=== PATIENT | female | born 1950 | race African-American/Black ===

== ENCOUNTER 2016-08-05 15:25 | Emergency (ER) | payer MEDICARE, MEDICAID ==
[~2016-08-05] VITALS: Ht 167.6 cm; Wt 70.0 kg
[2016-08-05] MEDS ORDERED: BACITRACIN ZINC OINT UDPKT TOP ONE (18:30)
[2016-08-05] MEDS ORDERED: LIDOCAINE HCL/EPINEPHRINE 1%-EPI 1:100,000 20 ML VIAL MC ONE (18:30)
[2016-08-05 21:08] VITALS: BP 121/77
== END 2016-08-05 21:09 | disposition home or self-care (01) ==
LOC: ER 18:27
DX: S41.12 Laceration with foreign body of upper arm (principal); Z48.02 Encounter for removal of sutures; E11.9 Type 2 diabetes mellitus without complications; I10 Essential (primary) hypertension; I25.10 Atherosclerotic heart disease of native coronary artery without angina pectoris; Z98.890 Other specified postprocedural states; F17.210 Nicotine dependence, cigarettes, uncomplicated; V43.62XD Car passenger injured in collision with other type car in traffic accident, subsequent encounter
CPT/HCPCS: 20520; 73060; 99284; J3490

== ENCOUNTER 2020-03-30 07:35 | Emergency (ER) | payer MEDICARE, MEDICAID ==
[~2020-03-30] VITALS: Ht 160 cm; Wt 56.0 kg
[2020-03-30 08:20] LABS: BASOPHILS % 0.5 % (0.0-2.0); EOSINOPHILS % 1.9 % (0.0-5.0); HEMATOCRIT. 39.3 % (36.0-48.0); HEMOGLOBIN. 13.6 g/dL (12.0-16.0); LYMPHOCYTES % 15.3 % (20.0-50.0); MEAN CORPUSCULAR HEMOGLOBIN 29.5 pg (28.0-32.0); MEAN CORPUSCULAR VOLUME 85.1 fL (81.0-99.0); MEAN PLATELET VOLUME 9.6 fl (7.4-10.4); NEUTROPHILS % 79.3 % (40.0-76.0); PLATELET 230 x1000/uL (130-400); RED BLOOD CELL COUNT 4.62 mill/uL (4.2-5.4); RED CELL DISTRIBUTION WIDTH 16.5 % (11.6-14.6)
[2020-03-30 08:28] LABS: CHLORIDE 106 mEq/L (98-107)
[2020-03-30] MEDS ORDERED: FUROSEMIDE 40MG/4ML VIAL IVP ONE (09:30)
[2020-03-30] MEDS ORDERED: ENALAPRIL 2.5MG/2ML VIAL 2ML IV ONE (09:30)
[2020-03-30 10:23] VITALS: BP 174/81
== END 2020-03-30 11:50 | disposition left against medical advice (07) ==
LOC: ER 08:21 → CANBEDREQ 11:47 → ER 11:50
DX: I11.0 Hypertensive heart disease with heart failure (principal); I50.9 Heart failure, unspecified; J44.9 Chronic obstructive pulmonary disease, unspecified
CPT/HCPCS: 36415; 71045; 80053; 83880; 84484; 85025; 93005; 96374; 96375; 99285; J1940; J3490

== ENCOUNTER 2020-04-15 08:38 | Inpatient (IN) | payer MEDICARE, MEDICAID ==
[~2020-04-15] VITALS: Ht 168.9 cm; Wt 64.4 kg
[2020-04-15] MEDS ORDERED: IPRATROPIUM BROMIDE (0.02%) 0.5MG/2.5ML NEB HHN STA (08:47)
[2020-04-15] MEDS ORDERED: METHYLPREDNISOLONE SOD SUCC 125 MG/2 ML VIAL IV STA (08:47)
[2020-04-15] MEDS ORDERED: ALBUTEROL (0.083%) 2.5MG/3ML NEB HHN STA (08:47)
[2020-04-15 09:57] LABS: BASOPHILS % 0.5 % (0.0-2.0); EOSINOPHILS % 1.8 % (0.0-5.0); HEMATOCRIT. 39.5 % (36.0-48.0); HEMOGLOBIN. 13.6 g/dL (12.0-16.0); LYMPHOCYTES % 18.8 % (20.0-50.0); MEAN CORPUSCULAR HEMOGLOBIN 29.2 pg (28.0-32.0); MEAN CORPUSCULAR VOLUME 84.9 fL (81.0-99.0); MEAN PLATELET VOLUME 9.4 fl (7.4-10.4); MONOCYTES % 4.6 % (2.0-8.0); NEUTROPHILS % 74.3 % (40.0-76.0); PLATELET 246 x1000/uL (130-400); RED BLOOD CELL COUNT 4.66 mill/uL (4.2-5.4); RED CELL DISTRIBUTION WIDTH 16.1 % (11.6-14.6)
[2020-04-15 10:03] LABS: CHLORIDE 103 mEq/L (98-107)
[2020-04-15] MEDS ORDERED: ASPIRIN 81MG TABLET PO ONE (10:45)
[2020-04-15] MEDS ORDERED: FUROSEMIDE 40MG/4ML VIAL IV ONE (10:45)
[2020-04-15] MEDS ORDERED: NITROGLYCERIN 0.4MG TABLET SL SL PRN (10:45)
[2020-04-15] MEDS ORDERED: ENOXAPARIN 80MG/0.8ML SYR SUBCUT ONE (12:15)
[2020-04-15] MEDS ORDERED: POTASSIUM CHLORIDE 20MEQ TABLET SR PO ONE (12:30)
[2020-04-15] MEDS ORDERED: ONDANSETRON HCL 4MG/2ML INJ IV PRN (13:15)
[2020-04-15] MEDS ORDERED: ACETAMINOPHEN 325MG TABLET PO PRN (13:15)
[2020-04-15] MEDS: AMLODIPINE 10MG TABLET PO SCH (13:34)
[2020-04-15] MEDS: FUROSEMIDE 40MG/4ML VIAL IVP SCH ×2 (13:34→17:26)
[2020-04-15] MEDS: METHYLPREDNISOLONE SOD SUCC 40 MG/ML VIAL IV SCH ×2 (13:36→22:27)
[2020-04-15] MEDS ORDERED: DEXTROSE 50% WATER 50ML SYRINGE IV PRN (15:00)
[2020-04-15 16:34] LABS: *BARBITURATES SCREEN URINE NEGATIVE (NEGATIVE)
[2020-04-15 16:35] LABS: *AMPHETAMINES SCREEN URINE NEGATIVE (NEGATIVE); *BENZODIAZEPINES SCREEN URINE PRESUMTIVE POSITIVE (NEGATIVE); *COCAINE SCREEN URINE NEGATIVE (NEGATIVE); METHADONE URINE SCREEN NEGATIVE (NEGATIVE); OPIATES URINE SCREEN PRESUMTIVE POSITIVE (NEGATIVE)
[2020-04-15 16:36] LABS: CANNABINOID URINE SCREEN NEGATIVE (NEGATIVE); PHENCYCLIDINE URINE SCREEN NEGATIVE (NEGATIVE)
[2020-04-15] MEDS: ALBUTEROL 6.7GM HFA INHALER ORI SCH ×2 (17:15→17:25)
[2020-04-15] MEDS: ACETAMINOPHEN WITH CODEINE 300/30MG TABLET PO PRN (17:25)
[2020-04-15] MEDS: TRAMADOL 50MG TABLET PO PRN (17:25)
[2020-04-15] MEDS: BLOOD SUGAR DIAGNOSTIC STRIP TEST SCH ×2 (17:26→21:32)
[2020-04-15] MEDS: INSULIN LISPRO 100 UNITS/ML SUBCUT SCH ×3 (17:31→21:32)
[2020-04-16] VITALS: BP 144/58
[2020-04-16] MEDS: TRAMADOL 50MG TABLET PO PRN (01:15)
[2020-04-16 01:21] VITALS: BP 144/58
[2020-04-16] MEDS ORDERED: FURO-151 PO ×2 (01:30→12:50)
[2020-04-16] MEDS: BLOOD SUGAR DIAGNOSTIC STRIP TEST SCH ×2 (06:14→11:10)
[2020-04-16] MEDS: METHYLPREDNISOLONE SOD SUCC 40 MG/ML VIAL IV SCH ×2 (06:14→13:28)
[2020-04-16] MEDS: FUROSEMIDE 40MG/4ML VIAL IVP SCH (06:15)
[2020-04-16] MEDS: ACETAMINOPHEN WITH CODEINE 300/30MG TABLET PO PRN (06:27)
[2020-04-16] MEDS: INSULIN LISPRO 100 UNITS/ML SUBCUT SCH ×2 (06:34→11:10)
[2020-04-16 08:00] VITALS: BP 129/63
[2020-04-16] MEDS ORDERED: POTASSIUM CHLORIDE 20MEQ TABLET SR PO SCH (09:00)
[2020-04-16] MEDS ORDERED: ENOXAPARIN 40MG/0.4ML SYR SUBCUT SCH (09:00)
[2020-04-16] MEDS ORDERED: LOSARTAN POTASSIUM 100 MG TABLET PO SCH (09:00)
[2020-04-16] MEDS: AMLODIPINE 10MG TABLET PO SCH (10:15)
[2020-04-16 10:26] LABS: CHLORIDE 100 mEq/L (98-107)
[2020-04-16 12:00] VITALS: BP 119/76
[2020-04-16] MEDS ORDERED: POTA20TA82 PO (12:50)
[2020-04-16] MEDS ORDERED: LOSA100T3 PO (12:50)
[2020-04-16] MEDS ORDERED: AMLO10TA80 PO (12:50)
[2020-04-16] MEDS ORDERED: FLUT1DIS3 INH (12:50)
[2020-04-16] MEDS ORDERED: ALBU18HF2 IH (12:50)
[2020-04-16] MEDS ORDERED: AZIT250T12 MT (13:22)
[2020-04-16] MEDS ORDERED: P20 MT (13:22)
[2020-04-16 13:53] VITALS: BP 146/67
== END 2020-04-16 14:25 | disposition home or self-care (01) | DRG 177 ==
LOC: ER 09:05 → 7EST 12:12 → EDBEDREQTM 12:17 → EDBEDREQ 12:17 → ENRESERV 20:38 → CANRESERV 20:38 → ENRESERV 23:13
PROVIDERS: ADMIT Internal Medicine; ATTEND Internal Medicine
DX: U07.1 COVID-19 (principal); J12.89 Other viral pneumonia; J96.00 Acute respiratory failure, unspecified whether with hypoxia or hypercapnia; I21.4 Non-ST elevation (NSTEMI) myocardial infarction; J44.0 Chronic obstructive pulmonary disease with (acute) lower respiratory infection; J44.1 Chronic obstructive pulmonary disease with (acute) exacerbation; I50.40 Unspecified combined systolic (congestive) and diastolic (congestive) heart failure; E11.9 Type 2 diabetes mellitus without complications; E87.6 Hypokalemia; F17.210 Nicotine dependence, cigarettes, uncomplicated; I16.0 Hypertensive urgency; Z20.828 Contact with and (suspected) exposure to other viral communicable diseases; Z95.1 Presence of aortocoronary bypass graft; Z79.1 Long term (current) use of non-steroidal anti-inflammatories (NSAID); Z79.899 Other long term (current) drug therapy; Z71.6 Tobacco abuse counseling; I11.0 Hypertensive heart disease with heart failure
CPT/HCPCS: 36415; 71045; 80048; 80053; 80305; 82962; 83036; 83880; 84484; 85025; 87635; 93005; 94640; 96374; 99291; J1650; J1815; J1940; J2920; J2930

== ENCOUNTER 2022-02-21 07:55 | Inpatient (IN) | payer MEDICARE, MEDICAID ==
[~2022-02-21] VITALS: Ht 157.5 cm; Wt 60.6 kg
[~2022-02-21 07:55] MED LIST: ALBU18HF2 IH; AMLO10TA80 PO; AZIT250T12 MT; FLUT1DIS3 INH; FURO-151 PO; LOSA100T3 PO; P20 MT; POTA-204 PO
[2022-02-21 08:42] LABS: BASOPHILS % 0.8 % (0.0-2.0); EOSINOPHILS % 0.9 % (0.0-5.0); HEMOGLOBIN. 12.3 g/dL (12.0-16.0); LYMPHOCYTES % 14.7 % (20.0-50.0); MEAN CORPUSCULAR VOLUME 78.3 fL (81.0-99.0); MEAN PLATELET VOLUME 9.3 fl (7.4-10.4); MONOCYTES % 6.3 % (2.0-8.0); NEUTROPHILS % 77.3 % (40.0-76.0); PLATELET 300 x1000/uL (130-400); RED BLOOD CELL COUNT 4.73 mill/uL (4.2-5.4); RED CELL DISTRIBUTION WIDTH 19.7 % (11.6-14.6)
[2022-02-21 08:48] LABS: CHLORIDE 97 mEq/L (98-107)
[2022-02-21 09:30] LABS: INR 1.3; PROTHROMBIN TIME 13.9 sec (9.6-11.0)
[2022-02-21] MEDS ORDERED: LEVOFLOXACIN 750MG PREMIX 150 ML IV ONE (09:30)
[2022-02-21] MEDS ORDERED: POTASSIUM CHLORIDE 20MEQ TABLET SR PO ONE (09:30)
[2022-02-21 09:51] LABS: CLARITY URINE CLEAR (CLEAR); COLOR URINE DARK YELLOW (YELLOW); KETONES URINE TRACE (NEGATIVE); LEUKOCYTE ESTERASE URINE 1+ (NEGATIVE); NITRITE URINE NEGATIVE (NEGATIVE); OCCULT BLOOD URINE TRACE (NEGATIVE); PH URINE 5.5 (4.5-8.0); PROTEIN URINE 3+ (NEGATIVE); SPECIFIC GRAVITY URINE 1.021 (1.005-1.030)
[2022-02-21] MEDS ORDERED: ACETAMINOPHEN 325MG TABLET PO PRN (12:30)
[2022-02-21] MEDS ORDERED: GUAIFENESIN-DM 200MG-20MG/10ML UDC PO PRN (12:30)
[2022-02-21] MEDS ORDERED: ONDANSETRON HCL 4MG/2ML INJ IV PRN (12:30)
[2022-02-21] MEDS ORDERED: POTASSIUM CHLORIDE 20MEQ TABLET SR PO NR (12:30)
[2022-02-21 12:50] VITALS: BP 144/90
[2022-02-21] MEDS ORDERED: MAGNESIUM 4 G PREMIX 100 ML IV NR (13:00)
[2022-02-21 16:00] VITALS: BP 140/82
[2022-02-21] MEDS: IPRATROPIUM/ALBUTEROL 0.5-3(2.5)MG/3ML NEB HHN PRN ×2 (16:28→19:59)
[2022-02-21 20:00] VITALS: BP 112/78
[2022-02-22] VITALS: BP 130/65
[2022-02-22 04:00] VITALS: BP 155/99
[2022-02-22 07:34] LABS: BASOPHILS % 0.7 % (0.0-2.0); EOSINOPHILS % 1.5 % (0.0-5.0); HEMATOCRIT. 33.9 % (36.0-48.0); HEMOGLOBIN. 11.4 g/dL (12.0-16.0); LYMPHOCYTES % 27.1 % (20.0-50.0); MEAN CORPUSCULAR HEMOGLOBIN 26.1 pg (28.0-32.0); MEAN CORPUSCULAR VOLUME 77.5 fL (81.0-99.0); MEAN PLATELET VOLUME 9.4 fl (7.4-10.4); MONOCYTES % 8.4 % (2.0-8.0); NEUTROPHILS % 62.3 % (40.0-76.0); PLATELET 280 x1000/uL (130-400); RED BLOOD CELL COUNT 4.37 mill/uL (4.2-5.4); RED CELL DISTRIBUTION WIDTH 19.3 % (11.6-14.6)
[2022-02-22 07:38] LABS: CHLORIDE 102 mEq/L (98-107)
[2022-02-22 08:00] VITALS: BP 133/58
[2022-02-22] MEDS ORDERED: LEVOFLOXACIN 500MG PREMIX 100 ML IV SCH ×2 (11:00→11:30)
[2022-02-22 12:00] VITALS: BP 123/80
[2022-02-22] MEDS ORDERED: LEVO500T90 MT (15:10)
[2022-02-22] MEDS ORDERED: ALBU18HF2 IH (15:10)
[2022-02-22] MEDS ORDERED: FLUT1DIS3 INH (15:10)
[2022-02-22] MEDS ORDERED: POTASSIUM CHLORIDE 20MEQ TABLET SR PO NR (15:15)
[2022-02-22] MEDS ORDERED: MAGNESIUM OXIDE 400MG TABLET PO SCH (15:15)
[2022-02-22 15:36] VITALS: BP 113/69
[2022-02-22 16:00] VITALS: BP 113/69
== END 2022-02-22 17:20 | disposition home or self-care (01) | DRG 195 ==
LOC: ER 07:55 → 7EST 10:18
PROVIDERS: ADMIT Internal Medicine; ATTEND Internal Medicine
DX: J18.9 Pneumonia, unspecified organism (principal); E87.6 Hypokalemia; E87.8 Other disorders of electrolyte and fluid balance, not elsewhere classified; E83.42 Hypomagnesemia; Z20.822 Contact with and (suspected) exposure to COVID-19; I11.0 Hypertensive heart disease with heart failure; I50.9 Heart failure, unspecified; J44.9 Chronic obstructive pulmonary disease, unspecified; E11.9 Type 2 diabetes mellitus without complications; I25.10 Atherosclerotic heart disease of native coronary artery without angina pectoris; Z79.899 Other long term (current) drug therapy; Z86.73 Personal history of transient ischemic attack (TIA), and cerebral infarction without residual deficits; Z95.1 Presence of aortocoronary bypass graft
CPT/HCPCS: 36415; 71045; 80048; 80053; 81003; 83605; 83735; 84132; 84145; 84484; 85025; 87426; 93005; 94640; 99285; C9803; J1956; J3475

== ENCOUNTER 2022-06-11 10:59 | Inpatient (IN) | payer MEDICARE, MEDICAID ==
[~2022-06-11] VITALS: Ht 157.5 cm; Wt 89.8 kg
[~2022-06-11 10:59] MED LIST changes: -AZIT250T12 MT; +LEVO-65 MT; -P20 MT
[2022-06-11] MEDS ORDERED: METHYLPREDNISOLONE SOD SUCC 125 MG/2 ML VIAL IV STA (12:01)
[2022-06-11] MEDS ORDERED: IPRATROPIUM BROMIDE (0.02%) 0.5MG/2.5ML NEB HHN STA (12:01)
[2022-06-11] MEDS ORDERED: MAGNESIUM 2 G PREMIX 50 ML IV ONE (12:15)
[2022-06-11] MEDS ORDERED: ALBUTEROL (0.083%) 2.5MG/3ML NEB HHN SCH (12:30)
[2022-06-11] MEDS ORDERED: CEFTRIAXONE 1 G PREMIX 50 ML IV ONE (13:15)
[2022-06-11] MEDS ORDERED: AZITHROMYCIN 500MG/250ML 250 ML IV ONE (13:15)
[2022-06-11 13:51] LABS: BASOPHILS % 1.3 % (0.0-2.0); HEMATOCRIT. 34.6 % (36.0-48.0); HEMOGLOBIN. 11.5 g/dL (12.0-16.0); LYMPHOCYTES % 24.8 % (20.0-50.0); MEAN CORPUSCULAR HEMOGLOBIN 25.9 pg (28.0-32.0); MEAN CORPUSCULAR VOLUME 78.4 fL (81.0-99.0); MEAN PLATELET VOLUME 8.2 fl (7.4-10.4); MONOCYTES % 6.9 % (2.0-8.0); PLATELET 414 x1000/uL (130-400); RED BLOOD CELL COUNT 4.42 mill/uL (4.2-5.4); RED CELL DISTRIBUTION WIDTH 24.4 % (11.6-14.6)
[2022-06-11 13:57] LABS: CHLORIDE 102 mEq/L (98-107)
[2022-06-11 13:58] LABS: INR 1.2
[2022-06-11] MEDS ORDERED: POTASSIUM CHLORIDE 20MEQ TABLET SR PO NR (14:15)
[2022-06-11] MEDS ORDERED: CEFTRIAXONE 1 G PREMIX 50 ML IV NR (14:15)
[2022-06-11] MEDS ORDERED: METHYLPREDNISOLONE SOD SUCC 125 MG/2 ML VIAL IV NR (14:15)
[2022-06-11] MEDS ORDERED: ASPIRIN 325MG EC TABLET PO NR (14:30)
[2022-06-11] MEDS ORDERED: FUROSEMIDE 40MG/4ML VIAL IVP NR ×2 (14:30→17:45)
[2022-06-11 14:31] LABS: PLATELET ESTIMATE INCREASED
[2022-06-11] MEDS ORDERED: CLONIDINE 0.1MG TABLET PO PRN (16:00)
[2022-06-11] MEDS ORDERED: MAGNESIUM/ALUMINUM HYDROXIDE/SIMETHICONE 30ML UDC PO PRN (16:00)
[2022-06-11] MEDS ORDERED: IPRATROPIUM/ALBUTEROL 0.5-3(2.5)MG/3ML NEB HHN PRN (16:00)
[2022-06-11] MEDS ORDERED: ONDANSETRON HCL 4MG/2ML INJ IV PRN (16:00)
[2022-06-11] MEDS ORDERED: IPRATROPIUM BROMIDE (0.02%) 0.5MG/2.5ML NEB HHN NR (17:45)
[2022-06-11 18:00] VITALS: BP 115/71
[2022-06-11] MEDS ORDERED: VANCOMYCIN 1.25GM PMX (XELLIA) 250 ML IV NR (18:00)
[2022-06-11 18:30] VITALS: BP 115/71
[2022-06-11] MEDS ORDERED: BENZONATATE 100MG CAPSULE PO PRN (18:45)
[2022-06-11 20:20] VITALS: BP 137/77
[2022-06-11] MEDS: GUAIFENESIN 200MG/10ML SUGAR FREE UDC PO PRN (20:53)
[2022-06-11] MEDS: ENOXAPARIN 40MG/0.4ML SYR SUBCUT SCH (20:54)
[2022-06-11] MEDS ORDERED: IOHEXOL-300 100 ML BOTTLE ONE (23:10)
[2022-06-11] MEDS ORDERED: ZOLPIDEM TARTRATE 5MG TABLET PO NR (23:45)
[2022-06-11 23:50] LABS: CHLORIDE 100 mEq/L (98-107)
[2022-06-11 23:59] LABS: CREATINE KINASE MB FRACTION 1.7 ng/mL (0.5-3.6)
[2022-06-12 00:20] VITALS: BP 119/62
[2022-06-12 04:10] VITALS: BP 124/66
[2022-06-12 04:47] LABS: BASOPHILS % 0.2 % (0.0-2.0); HEMATOCRIT. 32.4 % (36.0-48.0); HEMOGLOBIN. 10.9 g/dL (12.0-16.0); LYMPHOCYTES % 10.6 % (20.0-50.0); MEAN CORPUSCULAR HEMOGLOBIN 25.9 pg (28.0-32.0); MEAN CORPUSCULAR VOLUME 76.8 fL (81.0-99.0); MEAN PLATELET VOLUME 8.2 fl (7.4-10.4); MONOCYTES % 3.8 % (2.0-8.0); NEUTROPHILS % 85.4 % (40.0-76.0); PLATELET 359 x1000/uL (130-400); RED BLOOD CELL COUNT 4.22 mill/uL (4.2-5.4); RED CELL DISTRIBUTION WIDTH 24.4 % (11.6-14.6)
[2022-06-12 05:03] LABS: CHLORIDE 102 mEq/L (98-107)
[2022-06-12 05:23] LABS: CREATINE KINASE 79 IU/L (26-192); CREATINE KINASE MB FRACTION 1.6 ng/mL (0.5-3.6); HDL CHOLESTEROL 43 mg/dL (40-59); LDL CHOLESTEROL 71 mg/dL (5-100); T4 FREE 1.19 ng/dL (0.76-1.46); TOTAL IRON BINDING CAPACITY 262 ug/dL (250-450)
[2022-06-12 05:42] LABS: VITAMIN B12 SERUM 989 pg/mL (211-911)
[2022-06-12] MEDS ORDERED: CEFTRIAXONE 1 G PREMIX 50 ML IV SCH (06:00)
[2022-06-12] MEDS ORDERED: AZITHROMYCIN 250 MG in DEXT 5% WATER 250 ML IV SCH (06:00)
[2022-06-12 08:00] VITALS: BP 130/67
[2022-06-12] MEDS: PANTOPRAZOLE 40MG DR TABLET PO SCH (08:51)
[2022-06-12] MEDS: ASPIRIN 81MG EC TABLET PO SCH (08:51)
[2022-06-12] MEDS ORDERED: IOHEXOL-350 100 ML BOTTLE ONE (10:37)
[2022-06-12 12:00] VITALS: BP 145/65
[2022-06-12] MEDS ORDERED: DEXTROSE 50% WATER 50ML SYRINGE IV PRN (13:00)
[2022-06-12] MEDS ORDERED: CEFTRIAXONE 1,000 MG in DEXTROSE 5% WATER 50 ML IV SCH ×2 (13:00→16:00)
[2022-06-12] MEDS ORDERED: AZITHROMYCIN 500MG in DEXTROSE 5% WATER 250ML IV SCH ×2 (14:00→16:00)
[2022-06-12 16:00] VITALS: BP 135/68
[2022-06-12] MEDS: INSULIN LISPRO 100 UNITS/ML SUBCUT SCH ×2 (17:40→21:00)
[2022-06-12] MEDS ORDERED: VANCOMYCIN 1G PREMIX 200 ML IV SCH (18:00)
[2022-06-12] MEDS: FERROUS SULFATE 325MG TABLET PO SCH (18:30)
[2022-06-12 20:00] VITALS: BP 125/78
[2022-06-12] MEDS: BLOOD SUGAR DIAGNOSTIC STRIP TEST SCH (21:11)
[2022-06-12] MEDS: GUAIFENESIN 200MG/10ML SUGAR FREE UDC PO PRN (21:12)
[2022-06-12] MEDS: ENOXAPARIN 40MG/0.4ML SYR SUBCUT SCH (21:13)
[2022-06-12] MEDS ORDERED: ALBUTEROL (0.083%) 2.5MG/3ML NEB HHN PRN ×2 (21:45→23:15)
[2022-06-12] MEDS ORDERED: IPRATROPIUM BROMIDE (0.02%) 0.5MG/2.5ML NEB HHN PRN ×2 (21:45→23:15)
[2022-06-12] MEDS ORDERED: IPRATROPIUM BROMIDE (0.02%) 0.5MG/2.5ML NEB HHN SCH (23:00)
[2022-06-12] MEDS ORDERED: IPRATROPIUM/ALBUTEROL 0.5-3(2.5)MG/3ML NEB HHN PRN (23:00)
[2022-06-13] VITALS: BP 133/82
[2022-06-13] MEDS ORDERED: ALBUTEROL (0.083%) 2.5MG/3ML NEB HHN SCH
[2022-06-13] MEDS ORDERED: IPRATROPIUM BROMIDE (0.02%) 0.5MG/2.5ML NEB HHN SCH
[2022-06-13 04:00] VITALS: BP 135/62
[2022-06-13] MEDS: METHYLPREDNISOLONE SOD SUCC 40 MG/ML VIAL IV SCH ×2 (04:01→07:00)
[2022-06-13] MEDS: METRONIDAZOLE 500MG TABLET PO SCH ×2 (04:01→07:00)
[2022-06-13] MEDS: INSULIN LISPRO 100 UNITS/ML SUBCUT SCH ×2 (06:58→12:19)
[2022-06-13] MEDS: BLOOD SUGAR DIAGNOSTIC STRIP TEST SCH ×2 (06:58→12:16)
[2022-06-13] MEDS: PANTOPRAZOLE 40MG DR TABLET PO SCH (07:00)
[2022-06-13 08:00] VITALS: BP 120/62
[2022-06-13] MEDS: FERROUS SULFATE 325MG TABLET PO SCH ×2 (08:41→12:18)
[2022-06-13] MEDS: ASPIRIN 81MG EC TABLET PO SCH (08:41)
[2022-06-13 10:06] VITALS: BP 120/62
[2022-06-13] MEDS ORDERED: AMOX1TAB16 MT (10:43)
[2022-06-13] MEDS ORDERED: BUDE6HFA INH (10:43)
[2022-06-13] MEDS ORDERED: LIP40 PO (10:43)
[2022-06-13] MEDS ORDERED: SPIR25TA6 MT (10:43)
[2022-06-13] MEDS ORDERED: FERR-63 PO (10:43)
[2022-06-13] MEDS ORDERED: METF-414 MT (10:43)
[2022-06-13] MEDS ORDERED: ASPI-1406 PO (10:43)
[2022-06-13] MEDS ORDERED: METO-396 MT (10:43)
[2022-06-13] MEDS ORDERED: ALBU6.7H3 INH (10:43)
[2022-06-13] MEDS ORDERED: LOSA25TA26 MT (10:43)
[2022-06-13] MEDS ORDERED: P20 MT (10:43)
[2022-06-13] MEDS ORDERED: BENZ100C86 PO (10:43)
[2022-06-13] MEDS ORDERED: POTASSIUM CHLORIDE 20MEQ TABLET SR PO NR (11:00)
[2022-06-13] MEDS ORDERED: LOSARTAN POTASSIUM 25 MG TABLET PO SCH (11:00)
[2022-06-13] MEDS ORDERED: CARVEDILOL 3.125 MG TABLET PO SCH (21:00)
[2022-06-13] MEDS ORDERED: ATORVASTATIN CALCIUM 40MG TABLET PO SCH (21:00)
== END 2022-06-13 12:46 | disposition home or self-care (01) | DRG 193 ==
LOC: ER 12:13 → EDBEDREQ 13:16 → EDBEDREQTM 13:16 → 8WST 13:30 → EDBEDREQTM 15:37 → EDBEDREQ 15:37 → ENRESERV 17:50
PROVIDERS: ADMIT Internal Medicine; ATTEND Internal Medicine
DX: J18.9 Pneumonia, unspecified organism (principal); I50.23 Acute on chronic systolic (congestive) heart failure; J96.00 Acute respiratory failure, unspecified whether with hypoxia or hypercapnia; R65.11 Systemic inflammatory response syndrome (SIRS) of non-infectious origin with acute organ dysfunction; J44.1 Chronic obstructive pulmonary disease with (acute) exacerbation; J44.0 Chronic obstructive pulmonary disease with (acute) lower respiratory infection; R18.8 Other ascites; I11.0 Hypertensive heart disease with heart failure; D50.9 Iron deficiency anemia, unspecified; Z20.822 Contact with and (suspected) exposure to COVID-19; I25.10 Atherosclerotic heart disease of native coronary artery without angina pectoris; E87.6 Hypokalemia; E11.9 Type 2 diabetes mellitus without complications; K80.20 Calculus of gallbladder without cholecystitis without obstruction; Z80.3 Family history of malignant neoplasm of breast; Z91.14 Patient's other noncompliance with medication regimen; Z95.1 Presence of aortocoronary bypass graft; Z87.891 Personal history of nicotine dependence; Z86.73 Personal history of transient ischemic attack (TIA), and cerebral infarction without residual deficits
CPT/HCPCS: 36415; 71045; 71260; 71275; 74177; 80053; 80061; 82378; 82550; 82553; 82607; 82728; 82746; 82962; 83036; 83540; 83550; 83605; 83880; 84075; 84145; 84425; 84439; 84443; 84484; 85025; 85379; 86300; 86304; 87426; 87804; 93005; 93306; 93970; 94640; 97161; 97166; 97535; 99291; C9803; J0456; J0696; J1650; J1815; J1940; J2920; J2930; J3370; J3475; J7060; Q9967